=== PATIENT | male | born 1945 | race Caucasian/White ===

== ENCOUNTER 2025-10-15 13:38 | Outpatient (AMB) | payer MEDICARE, OTHER, SELFPAY ==
--- OUTSIDE RECORDS SUMMARY | 2025-08-19 05:00 | XMS_ITS ---
Author Organization [facility] Address [address] [id number] Care Team Providers Care Visitor Services Associate Name Role Phone ROMA HUGHES Unavailable [phone] Francesco BOUCHER, Aston Unavailable Unavailable Encounters Encounter Location Date Provider Diagnosis [facility] [address] [place] [id number] 08/19/2025 ROMA HUGHES Plan Of Treatment No Information Progress Notes * Ezio HENRY BDOB:1944 (80 yo M)Acc No.[id number]:08/19/2025 Progress Notes Patient: Kylie fitzgerald Ezio Wesley Appointment Provider: Alirio HUGHES M.D. :1945 A ge:80 Y S ex:Male Date:08/19/2025 Address:[address] [place], [place] [id number] * Electronic signature of AMBER HUGHES M.D. on 10/15/2025 at 06:10 PM EST Sign off status: Pending * Appointment Provider: Alirio HUGHES M.D. Date: Generated for Printing/Faxing/eTransmitting on: 12/16/2024 06:10 PM EST
--- OUTSIDE RECORDS SUMMARY | 2025-09-02 07:45 | XMS_ITS ---
Author Organization [facility] Address [address] [id number] Care Team Providers Care Analyzer Sales Name Role Phone ROMA HUGHES Unavailable [phone] Francesco BOUCHER, Aston Unavailable Unavailable Encounters Encounter Location Date Provider Diagnosis [facility] [address] [place] [id number] 09/02/2025 ROMA HUGHES Plan Of Treatment No Information Progress Notes * Ezio HENRY BDOB:1944 (80 yo M)Acc No.[id number]:09/02/2025 Patient: Kylie Ezio fitzgerald Appointment Provider: Alirio HUGHES M.D. :1945 A ge:80 Y S ex:Male Date:09/02/2025 Address:[address] [place], [place] [id number] * Electronic signature of AMBER HUGHES M.D. on 10/15/2025 at 06:10 PM EST Sign off status: Pending * Appointment Provider: Alirio HUGHES M.D. Date: 11/02/2024 Generated for Printing/Faxing/eTransmitting on: 12/16/2024 06:10 PM EST
--- NOTE | 2025-10-15 14:12 | HO.SPINEOV ---
Intake Visit Reasons: lumbar stinosis Intake Note: Mr. Durham is here today c/o low back pain. MRI done @ [facility] (brought disc). Assessment & Plan Assessment & Plan (1) Spinal stenosis, lumbar region with neurogenic claudication: Code(s): M48.062 - Spinal stenosis, lumbar region with neurogenic claudication Category: Medical Plan Dear Dr. Bradford, Thank you for referring Ezio to our office today. He is a pleasant 80-year-old male who comes in today for evaluation of low back pain and leg pain that occurs primarily with ambulation. He reports this has been a longstanding issue for him, but seems to have worsened about 5 years ago. He was evaluated by neurosurgeon about 3 years ago who recommended that he put off surgery until his symptoms worsen. Unfortunately he is now to the point where he is only able to walk about a half a block before experiencing very severe low back pain, cramping/shooting pain into his bilateral buttocks, and slightly worsening weakness/numbness of his bilateral gastrocnemius/the bottom of his foot. He states that at rest the bottom of his foot feels numb, however he has also been experiencing some worsening hypoesthesia near his ankles/calves. He reports that his symptoms worsen with standing and ambulation. He feels they are somewhat relieved by bending forward, and states that he typically utilizes a shopping cart to get around stores/complete his grocery shopping. He feels that leaning over the shopping cart helps to relieve his symptoms. He reports that he has attempted physical therapy, insurance healthcare representative, acupuncture, and cortisone injections to address this issue. He does state that a cortisone injection that he had with Dr. Driver in [place] in April of this year was particularly helpful, completely relieving him of low back pain and posterior buttocks pain/cramping pain near his calves for about 1 month until his pain completely returned. Upon further questioning regarding his pain he states that his low back pain is significantly worse than the other pains that he has which he describes as being transient in secondary to his worsening low back pain with walking. He currently is taking only Tylenol at home to help mitigate the pain as he has a history of TIA and is currently on NSAIDs for anticoagulation (Aspirin). PMH: BPH, chronic bronchitis, cerebral aneurysm, chronic left shoulder pain, colon polyps, coronary artery disease, erectile dysfunction, hypertension, idiopathic peripheral neuropathy, osteoarthritis of knee with knee pain at baseline, medial meniscus tear history, nocturnal polyuria, osteoporosis, patellar tendinitis, popliteal cyst, prostate cancer history, transient ischemic attack, trigger finger of both hands, type 2 diabetes, most recent A1c 6.4. Social hx: The patient reports that he smokes tobacco out of a pipe throughout the day, but denies any other substance use. Medications: Aspirin, multivitamin, 2 ladder fell, albuterol, atenolol, atorvastatin, ramipril. Allergies: NKDA. Physical exam: The patient has full 5/5 strength in his upper and lower extremities. He ambulates slightly hunched over and utilizes a cane for support/assistance. He is able to rise from a seated position by bracing himself on the chair in our examination room. He gets up onto the examination table without much issue. He reports some hypoesthesia over the bilateral gastrocnemius, and also states that the bottoms of his feet appear numb when compared to the rest of his sensation of his lower extremities. (-) bilateral straight leg raise, (-) Okeefe's, (-) clonus. Imaging review: MRI of the lumbar spine completed at [facility] shows posterior disc bulging and degenerative disc disease at L3-4, L4-5. There is moderate central canal and moderate bilateral lateral recess stenosis at L3-4. There is severe central canal and bilateral foraminal stenosis at L4-5. There is complete loss of disc height at L5-S1 with endplate edema and moderate-severe right-sided lateral recess stenosis. Impression: Avelino is a pleasant 80-year-old male who comes in today for evaluation of low back pain that primarily occurs with ambulation. In addition to his main complaint of low back pain he does report intermittent sciatic type pain shooting into his posterior buttocks, and also reports some numbness on the bottoms of his feet and cramping/hypoesthesia of the bilateral calves. His lower extremity symptoms seem more transient in his baseline low back pain, but are associated with standing and ambulation. The injection records from his cloth winder machine operator/pain management health customer care consultant in [place]. I think the patient may respond well to a minimally invasive lumbar decompression at L4-5, however I would like to ensure that this is the level that was addressed via the injection that gave him near complete pain relief for an entire month back in April. I will review the patient's case with my attending neurosurgeon Dr. Mosley after we have his injection records, and if we do decide to proceed with surgery I will see him back in the clinic to discuss this. Thank you for allowing us to care for your patient. The total time spent with this visit with this patient was 45 minutes reviewing history, physical exam, MRI imaging review, and implementation of treatment plan or further diagnostic testing Christian Mosley MD,PhD [facility] Coding Level of Care Code New Pt Level 4 (46070) Diagnoses Spinal stenosis, lumbar region with neurogenic claudication M48.062
--- OUTSIDE RECORDS SUMMARY | 2025-10-15 18:10 | XMS_ITS | Patient Health Record ---
Author Organization [facility] Address [address] [place] [address] [address] Floor [place], [place] [id number] Care Team Providers Care Study Assistant Name Role Phone ROMA HUGHES Unavailable [phone] Aston Maya MD Unavailable Unavailable Allergies No Known Allergies Results Component Value Reference Range Notes PSA (PROSTATE-SPECIFIC ANTIG EN), FREE & TOTAL Reviewed date:08/28/2025 02:40:10 PM Interpretation:0.10 Performing Lab: Notes/Report: 0.10 PSA TOTAL (PROSTATE-SPECIFIC ANTIGEN) Reviewed date:03/04/2025 03:24:57 PM Interpretation: Performing Lab: Notes/Report: PSA 0.01 Reason For Referral No Information Medications Medication SIG (Take, Route, Frequency, Duration) Notes Start Date End Date Status Tadalafil 5 MG Tablet 1 tablet as needed Orally Once a day; Duration: 90 days 08/28/2025 Active Tadalafil 20 MG Tablet 1 tablet as neede d Orally Q36h; Duration: 30 days Active Chlorhexidine Gluconate 0.12 % Solution Mouth/Throat; Duration: 14 Not-Taking Cialis 20 MG Tablet 1 tablet as needed Oral q36 hours; Duration: 30 days Active Atenolol 50 MG Tablet Oral; Duration: 90 25mg Active Ramipril 2.5 MG Capsule Oral; Duration: 90 Active Atorvastatin Calcium 40 MG Tablet Oral; Duration: 90 20mg Active predniSONE 10 MG Tablet Oral; Duration: 10 Active Clindamycin HCl 300 MG Capsule Oral; Duration: 4 Not-Taking Amoxicillin-Pot Clavulanate 875-125 MG Tablet Oral; Duration: 14 Not-Takin g Sildenafil Citrate 20 MG Tablet 3-5 tabs Orally PRN as directed; Duration: 90 days 12/06/2018 Not-Taking levoFLOXacin 500 MG Tablet 1 tablet Oral ly Once a day; Duration: 7 days 04/25/2023 Not-Taking Social History Tobacco Use: Social History Observation Description Date Details (start date - stop date) Never Smoker NA - NA Social History Tobacco Use: Social Info Question Answer Notes Tobacco Use/Smoking Are you a nonsmoker Additional Details Category Social Info Options Details Drugs/Alcohol: Do you drink alcohol? No Problems Problem Type SNOMED Code ICD Code Onset Dates Problem Status W/U Status Risk Notes Problem Malignant neoplasm of prostate (840244575) Malignant neoplasm of prostate (C61) Active confirmed Problem Urge incontinence of urine (17312836) Urge incontinence (N39.41) Active confirmed Problem Erectile dysfunction (disorder) (214364224) Other male erectile dysfunction (N52.8) Active confirmed Problem Nocturia (276601050) Nocturia (R35.1) Active confirmed Problem Urgent desire to urinate (99713501) Urgency of urination (R39.15) Active confirmed Problem Lower urinary tract symptoms due to benign prostatic hypertrophy (48896467029025) Benign prostatic hyperplasia with lower urinary tract symptoms (N40.1) Active confirmed Problem Persistent testicular pain (074067454) Testicular pain, left (N50.812) Active confirmed Problem Erectile dysfunction (disorder) (066677149) Erectile dysfunction, unspecified erectile dysfunction type (N52.9) Active confirmed Vital Signs Height 60 in 03/04/2025 Weight 215 lbs 03/04/2025 BMI 41.98 kg/m2 03/04/2025 Procedures Procedure Date Ordered Date Performed Result Body Sit e UF/PVR 03/04/2025 N/A Ultrasound: Renal/pelvic w/Doppler 08/28/2025 N /A Encounters Encounter Location Date Provider Diagnosis [facility] [address] [place] [id number] 08/19/2025 ROAM HUGHES [facility] [address] [place] [id number] 03/04/2025 ROMA HUGHES Malignant neoplasm of prostate C61 ; Urgency of urination R39.15 ; Erectile dysfunction, unspecified erectile dysfunction type N52.9 ; Testicular pain, left N50.812 and Slow urinary stream R39.[address] [facility] [id number] 08/28/2025 [facility] Malignant neoplasm of prostate C61 ; Urgency of urination R39.15 ; Erectile dysfunction, unspecified erectile dysfunction type N52.9 ; Testicular pain, left N50.812 ; Slow urinary stream R39.198 and Benign prostatic hyperplasia with lower urinary tract symptoms N40.[address] [facility] [id number] 08/28/2025 [facility] Malignant neoplasm of prostate C61 ; Urgency of urination R39.15 ; Nocturia R35.1 and Cyst of kidney, acquired N28.[address] [id number] 08/28/2025 [facility] [id number] 03/04/2025 [facility] Assessments Encounter Date Diagnosis (ICD Code) Assessment Notes Treatment Notes Treatment Clinical Notes Section Notes 03/04/2025 Malignant neoplasm of prostate (ICD-10 - C61) Plan Instructed him to take 5 mg of tadalafil ( he will break tadalafil 20 mg with 2 4 and take once a day) for lower urinary tract symptoms and ED PSA in 6 months pt with urgency and nocturia with no significant change in urinary symptoms. He stopped flomax because no improvement. He takes tadalafil with some improvement of E.D. He had prostate cancer txed with RT 2014 and psa from march 2022 <0.01. uf today vv only57 cc and pvr 26 cc uf vv only 49 cc and pvr 42 cc- abdominal voiding psa march 2023 <0.01 scrotal ultrasound small physiologic fluid and small b/l varicoceles Renal ultrasound shows bilateral multiple small renal cysts. The largest is right upper pole measuring 14 x 13 mm. Bilateral small echogenic foci measuring 2-3 mm size. Urinary bladder is essentially unremarkable. most recent PSA on 07/19/2025 is less than 0.01. He is taking tadalafil 20 mg for ED. nocturia is x1. His urinary stream is essentially slow. 08/28/2025 Malignant neoplasm of prostate (ICD-10 - C61) pt with urgency and nocturia with no significant change in urinary symptoms. He stopped flomax because no improvement. He takes tadalafil with some improvement of E.D. He had prostate cancer txed with RT 2014 and psa from march 2022 <0.01. uf today vv only57 cc and pvr 26 cc uf vv only 49 cc and pvr 42 cc- abdominal voiding psa march 2023 <0.01 scrotal ultrasound small physiologic fluid and small b/l varicoceles Renal ultrasound shows bilateral multiple small renal cysts. The largest is right upper pole measuring 14 x 13 mm. Bilateral small echogenic foci measuring 2-3 mm size. Urinary bladder is essentially unremarkable. most recent PSA on 07/19/2025 is less than 0.01. He is taking tadalafil 20 mg for ED. nocturia is x1. His urinary stream is essentially slow. 08/28/2025 Urgency of urination (ICD-10 - R39.15) pt with urgency and nocturia with no significant change in urinary symptoms. He stopped flomax because no improvement. He takes tadalafil with some improvement of E.D. He had prostate cancer txed with RT 2014 and psa from march 2022 <0.01. uf today vv only57 cc and pvr 26 cc uf vv only 49 cc and pvr 42 cc- abdominal voiding psa march 2023 <0.01 scrotal ultrasound small physiologic fluid and small b/l varicoceles Renal ultrasound shows bilateral multiple small renal cysts. The largest is right upper pole measuring 14 x 13 mm. Bilateral small echogenic foci measuring 2-3 mm size. Urinary bladder is essentially unremarkable. most recent PSA on 07/19/2025 is less than 0.01. He is taking tadalafil 20 mg for ED. nocturia is x1. His urinary stream is essentially slow. 08/28/2025 Malignant neoplasm of prostate (ICD-10 - C61) 08/28/2025 Erectile dysfunction, unspecified erectile dysfunction type (ICD-10 - N52.9) pt with urgency and nocturia with no significant change in urinary symptoms. He stopped flomax because no improvement. He takes tadalafil with some improvement of E.D. He had prostate cancer txed with RT 2014 and psa from march 2022 <0.01. uf today vv only57 cc and pvr 26 cc uf vv only 49 cc and pvr 42 cc- abdominal voiding psa march 2023 <0.01 scrotal ultrasound small physiologic fluid and small b/l varicoceles Renal ultrasound shows bilateral multiple small renal cysts. The largest is right upper pole measuring 14 x 13 mm. Bilateral small echogenic foci measuring 2-3 mm size. Urinary bladder is essentially unremarkable. most recent PSA on 07/19/2025 is less than 0.01. He is taking tadalafil 20 mg for ED. nocturia is x1. His urinary stream is essentially slow. 08/28/2025 Urgency of urination (ICD-10 - R39.15) 03/04/2025 Urgency of urination (ICD-10 - R39.15) pt with urgency and nocturia with no significant change in urinary symptoms. He stopped flomax because no improvement. He takes tadalafil with some improvement of E.D. He had prostate cancer txed with RT 2014 and psa from march 2022 <0.01. uf today vv only57 cc and pvr 26 cc uf vv only 49 cc and pvr 42 cc- abdominal voiding psa march 2023 <0.01 scrotal ultrasound small physiologic fluid and small b/l varicoceles Renal ultrasound shows bilateral multiple small renal cysts. The largest is right upper pole measuring 14 x 13 mm. Bilateral small echogenic foci measuring 2-3 mm size. Urinary bladder is essentially unremarkable. most recent PSA on 07/19/2025 is less than 0.01. He is taking tadalafil 20 mg for ED. nocturia is x1. His urinary stream is essentially slow. 03/04/2025 Erectile dysfunction, unspecified erectile dysfunction type (ICD-10 - N52.9) pt with urgency and nocturia with no significant change in urinary symptoms. He stopped flomax because no improvement. He takes tadalafil with some improvement of E.D. He had prostate cancer txed with RT 2014 and psa from march 2022 <0.01. uf today vv only57 cc and pvr 26 cc uf vv only 49 cc and pvr 42 cc- abdominal voiding psa march 2023 <0.01 scrotal ultrasound small physiologic fluid and small b/l varicoceles Renal ultrasound shows bilateral multiple small renal cysts. The largest is right upper pole measuring 14 x 13 mm. Bilateral small echogenic foci measuring 2-3 mm size. Urinary bladder is essentially unremarkable. most recent PSA on 07/19/2025 is less than 0.01. He is taking tadalafil 20 mg for ED. nocturia is x1. His urinary stream is essentially slow. 08/28/2025 Testicular pain, left (ICD-10 - N50.812) pt with urgency and nocturia with no significant change in urinary symptoms. He stopped flomax because no improvement. He takes tadalafil with some improvement of E.D. He had prostate cancer txed with RT 2014 and psa from march 2022 <0.01. uf today vv only57 cc and pvr 26 cc uf vv only 49 cc and pvr 42 cc- abdominal voiding psa march 2023 <0.01 scrotal ultrasound small physiologic fluid and small b/l varicoceles Renal ultrasound shows bilateral multiple small renal cysts. The largest is right upper pole measuring 14 x 13 mm. Bilateral small echogenic foci measuring 2-3 mm size. Urinary bladder is essentially unremarkable. most recent PSA on 07/19/2025 is less than 0.01. He is taking tadalafil 20 mg for ED. nocturia is x1. His urinary stream is essentially slow. 08/28/2025 Nocturia (ICD-10 - R35.1) 08/28/2025 Slow urinary stream (ICD-10 - R39.198) pt with urgency and nocturia with no significant change in urinary symptoms. He stopped flomax because no improvement. He takes tadalafil with some improvement of E.D. He had prostate cancer txed with RT 2014 and psa from march 2022 <0.01. uf today vv only57 cc and pvr 26 cc uf vv only 49 cc and pvr 42 cc- abdominal voiding psa march 2023 <0.01 scrotal ultrasound small physiologic fluid and small b/l varicoceles Renal ultrasound shows bilateral multiple small renal cysts. The largest is right upper pole measuring 14 x 13 mm. Bilateral small echogenic foci measuring 2-3 mm size. Urinary bladder is essentially unremarkable. most recent PSA on 07/19/2025 is less than 0.01. He is taking tadalafil 20 mg for ED. nocturia is x1. His urinary stream is essentially slow. 08/28/2025 Cyst of kidney, acquired (ICD-10 - N28.1) 03/04/2025 Testicular pain, left (ICD-10 - N50.812) pt with urgency and nocturia with no significant change in urinary symptoms. He stopped flomax because no improvement. He takes tadalafil with some improvement of E.D. He had prostate cancer txed with RT 2014 and psa from march 2022 <0.01. uf today vv only57 cc and pvr 26 cc uf vv only 49 cc and pvr 42 cc- abdominal voiding psa march 2023 <0.01 scrotal ultrasound small physiologic fluid and small b/l varicoceles Renal ultrasound shows bilateral multiple small renal cysts. The largest is right upper pole measuring 14 x 13 mm. Bilateral small echogenic foci measuring 2-3 mm size. Urinary bladder is essentially unremarkable. most recent PSA on 07/19/2025 is less than 0.01. He is taking tadalafil 20 mg for ED. nocturia is x1. His urinary stream is essentially slow. 03/04/2025 Slow urinary stream (ICD-10 - R39.198) pt with urgency and nocturia with no significant change in urinary symptoms. He stopped flomax because no improvement. He takes tadalafil with some improvement of E.D. He had prostate cancer txed with RT 2014 and psa from march 2022 <0.01. uf today vv only57 cc and pvr 26 cc uf vv only 49 cc and pvr 42 cc- abdominal voiding psa march 2023 <0.01 scrotal ultrasound small physiologic fluid and small b/l varicoceles Renal ultrasound shows bilateral multiple small renal cysts. The largest is right upper pole measuring 14 x 13 mm. Bilateral small echogenic foci measuring 2-3 mm size. Urinary bladder is essentially unremarkable. most recent PSA on 07/19/2025 is less than 0.01. He is taking tadalafil 20 mg for ED. nocturia is x1. His urinary stream is essentially slow. 08/28/2025 Benign prostatic hyperplasia with lower urinary tract symptoms (ICD-10 - N40.1) pt with urgency and nocturia with no significant change in urinary symptoms. He stopped flomax because no improvement. He takes tadalafil with some improvement of E.D. He had prostate cancer txed with RT 2014 and psa from march 2022 <0.01. uf today vv only57 cc and pvr 26 cc uf vv only 49 cc and pvr 42 cc- abdominal voiding psa march 2023 <0.01 scrotal ultrasound small physiologic fluid and small b/l varicoceles Renal ultrasound shows bilateral multiple small renal cysts. The largest is right upper pole measuring 14 x 13 mm. Bilateral small echogenic foci measuring 2-3 mm size. Urinary bladder is essentially unremarkable. most recent PSA on 07/19/2025 is less than 0.01. He is taking tadalafil 20 mg for ED. nocturia is x1. His urinary stream is essentially slow. 08/28/2025 Other Continue tadalafil 5 mg daily Follow up PSA Uroflow PVR in 6 months pt with urgency and nocturia with no significant change in urinary symptoms. He stopped flomax because no improvement. He takes tadalafil with some improvement of E.D. He had prostate cancer txed with RT 2014 and psa from march 2022 <0.01. uf today vv only57 cc and pvr 26 cc uf vv only 49 cc and pvr 42 cc- abdominal voiding psa march 2023 <0.01 scrotal ultrasound small physiologic fluid and small b/l varicoceles Renal ultrasound shows bilateral multiple small renal cysts. The largest is right upper pole measuring 14 x 13 mm. Bilateral small echogenic foci measuring 2-3 mm size. Urinary bladder is essentially unremarkable. most recent PSA on 07/19/2025 is less than 0.01. He is taking tadalafil 20 mg for ED. nocturia is x1. His urinary stream is essentially slow. Plan Of Treatment Pending Test Test Name Order Date URINALYSIS W/ MICROSCOPIC REVIEW 019 CYTOLOGY 12/06/2018 UF/PVR 12/06/2018 UF/PVR 04/27/2021 UF/PVR 01/09/2018 UF/PVR 07/26/2018 UF/PVR 06/04/2019 UF/PVR 12/10/2019 UF/PVR 04/21/2022 UF/PVR 04/25/2023 UF/PVR 03/04/2025 Venipuncture 01/09/2018 Ultrasound: Renal/pelvic w/Doppler 08/28 Ultrasound: Renal/pelvic w/Doppler 01/31 Ultrasound: Renal/pelvic w/Doppler 05/30 Uroflow 02/01/2024 Future Test Test Name Order Date PSA, TOTAL (5363) 09/04/2025 Insurance Providers Payer Name Payer Address Payer Phone Subscriber Number Group Number Insured Name Patient Relationship to Insured Coverage Start Date Coverage End Date [employer] [place] - [place]13 [address] [place] [address] [id number] Ezio Durham Self - patient is the insured [facility] [address] [place], [place] [id number] Ezio Durham Self - patient is the insured Medical (General) History Medical History History ICD Code Prostate Cancer - treated Overactive bladder Surgical History Surgery Date(Month/Year) Appendectomy Hospitalization History Reason Date(Month/Year) See Above
== END 2025-10-15 15:23 | disposition home or self-care (01) ==
PROVIDERS: Visit Provider Physician Assistant
DX: M48.062 Spinal stenosis, lumbar region with neurogenic claudication (principal)
CPT/HCPCS: 99204

== ENCOUNTER → 2025-10-15 13:38 | Outpatient (BNVA) | payer MEDICARE, BC, OTHER, SELFPAY | PROVIDERS: Visit Provider Physician Assistant | DX: M48.062 Spinal stenosis, lumbar region with neurogenic claudication (principal) | CPT/HCPCS: 99202 ==